=== PATIENT | female | born 1955 | race Two or more races ===

== ENCOUNTER 2018-02-23 10:39 | Outpatient (CLI) | payer OTHER | END 2018-02-23 10:51 | disposition home or self-care (01) | LOC: SONOGRAMA 10:39 | DX: E04.1 Nontoxic single thyroid nodule (principal) ==

== ENCOUNTER 2018-09-28 08:22 | Outpatient (CLI) | payer OTHER | END 2018-09-28 08:27 | disposition home or self-care (01) | LOC: SONOGRAMA 08:22 | DX: E03.8 Other specified hypothyroidism (principal) ==